=== PATIENT | male | born 1985 | race Caucasian/White ===

== ENCOUNTER 2024-02-02 09:29 | Outpatient (CLI) | payer BC, SELFPAY | END 2024-02-02 09:30 | disposition home or self-care (01) | PROVIDERS: PCP Family Medicine; Visit Provider Family Medicine | DX: Z13.220 Encounter for screening for lipoid disorders (principal); Z13.1 Encounter for screening for diabetes mellitus | CPT/HCPCS: 80061; 82947 ==

== ENCOUNTER 2024-08-02 12:43 | Emergency (ER) | payer BC, SELFPAY ==
[2024-08-02 12:47] VITALS: BP 155/84; PULSE 80; RESP 16; TEMP 36.7; O2SAT 99; BMI 32.1
--- NOTE | 2024-08-02 13:30 | ED_ITS ---
HPI - Neck Pain/Injury General Chief Complaint: Neck Injury/Pain Stated Complaint: Severe neck pain Time Seen by Provider: 08/02/24 12:47 History of Present Illness HPI Narrative: This 38-year-old male comes in with neck pain that began this morning upon awakening. He thinks that he probably slept wrong. His neck pain is worsened through the day and now he has torticollis and is holding his head off to the right. He has increased pain or has twinges of pain when he tries to straighten up. He does not report any injury event or strenuous activity. 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 He does not report any symptoms like this in the past. He is not reporting any radiating symptoms into either arm or hands. Related Data Previous Rx's ?Medication ?Instructions ?Recorded cetirizine 10 mg tablet 10 mg PO QDAY #90 tabs 03/02/24 fluticasone propionate 50 1 spray intranasal BID #16 grams 03/02/24 mcg/actuation nasal spray,suspension cyclobenzaprine 10 mg tablet 10 mg PO TID #15 tabs 08/02/24 ketorolac 10 mg tablet 10 mg PO Q8H 5 days #15 tabs 08/02/24 methylprednisolone 4 mg tablets in See Rx Instructions PO .COMPLEX 08/02/24 a dose pack (Medrol (Hector)) #21 ea Allergies Allergy/AdvReac Type Severity Reaction Status Date / Time No Known Drug Allergies Allergy Verified 02/17/24 10:59 Review of Systems Status of ROS: Reports: 10 or more systems reviewed and unremarkable except as noted in History and below Narrative: Constitutional: No fevers, no weight gain or loss. Eyes: No discharge. No vision changes. HENT: No congestion, no sore throat, no ear pain. Cardiovascular: No chest pain, no palpitations. Respiratory: No shortness of breath, no wheezes, no cough. Gastrointestinal: No abdominal pain, no vomiting, no diarrhea. Genitourinary: No dysuria, no hematuria. Musculoskeletal: Normal range of motion. Skin: No rashes, no pruritis. Neurological: No dizziness, weakness, sensory change, speech change. Endo/Heme/Allergies: No bruising or bleeding. No polydipsia. Pysch: no suicidality, no anxiety, no insomnia. All other systems reviewed and are negative. PFSH PFSH Surgical History History of tonsillectomy and adenoidectomy (1988) ?Z90.89 - Acquired absence of other organs (ICD-10) History of lipoma ?Z86.018 - Personal history of other benign neoplasm (ICD-10) Family History Father Testicular cancer Maternal Grandfather Colon cancer Social History What is your current living situation?: I presently have a place to live Problems where you live: no known problems In the past 12 months, utilities in danger of being shut off: no In past 12 months, lack of transportation kept you from medical appts, meetings, work, or getting things needed for daily living: no In the past 12 mos, have been you worried that your food would run out before you had money to buy more?: never true In the past 12 mos, the food you bought just didn't last and you didn't have money to buy more?: never true How often does anyone, including family, friends and others, physically hurt you : never How often does anyone, including family, friends and others, insult or talk down to you: never How often does anyone, including family, friends and others, threaten you with harm: never How often does anyone, including family, friends and others, scream or curse at you: never Little interest or pleasure in doing things: not at all Feeling down, depressed, or hopeless: several days Exam Narrative: Exam Narrative: Constitutional: Well-developed, well-nourished, no acute distress. HEENT: Normocephalic, atraumatic. Neck: The patient is holding his head tipped to the right. He has pain when attempting to straighten up or rotate his head. There is no midline tenderness when palpating along his neck and spine. No radiating pain. Heart: Intact distal pulses. Lungs: No chest discomfort. No wheezes, rhonchi, or rales. Abdomen: Nontender. Back: Normal range of motion. Extremities: Normal range of motion. No injury. Skin: Intact. No rash. Warm. No erythema or pallor. Neurologic: No altered sensation. No weakness. Alert and oriented. Psychiatric: No suicidality. No anxiety or depression. No insomnia. Nursing notes and vitals signs are reviewed. Const: Vital Signs, click to edit/add: Vital Signs - 24 hr 08/02/24 12:47 Temperature 98.1 F Pulse Rate [Pulse Oximeter] 80 Respiratory Rate 16 Blood Pressure [Ri ght Upper Arm] 155/84 H Pulse Oximetry 99 Oxygen Delivery Me thod Room Air Course Vital Signs Vital signs: Initial Vital Signs Temperature 98.1 F 08/02/24 12:47 Temperature Source Temporal Artery Scan 08/02/24 12:47 Pulse Rate 80 08/02/24 12:47 Respiratory Rate 16 08/02/24 12:47 Blood Pressure 155/84 H 08/02/24 12:47 Blood Pressure Mean 107 H 08/02/24 12:47 Blood Pressure Position Sitting 08/02/24 12:47 Pulse Oximetry 99 08/02/24 12:47 Oxygen Delivery Method Room Air 08/02/24 12:47 Vital Signs Temperature 98.1 F 08/02/24 12:47 Pulse Rate 80 08/02/24 12:47 Respiratory Rate 16 08/02/24 12:47 Blood Pressure 155/84 H 08/02/24 12:47 Pulse Oximetry 99 08/02/24 12:47 Oxygen Delivery Method Room Air 08/02/24 12:47 Temperature 98.1 F 08/02/24 12:47 Pulse Rate 80 08/02/24 12:47 Respiratory Rate 16 08/02/24 12:47 Blood Pressure 155/84 H 08/02/24 12:47 Pulse Oximetry 99 08/02/24 12:47 Oxygen Delivery Method Room Air 08/02/24 12:47 MDM - Neck Pain/Injury MDM Narrative Medical decision making narrative: This patient comes in with neck pain and neck spasms as described above. He did not have any significant mechanism of injury that mandates imaging. I did offer imaging none the less and yet he declined for now. Patient received prescriptions for Toradol, Flexeril, and Medrol Dosepak. I did advise him regarding simple maneuvers to help relax the spasm. I also advised him regarding signs or symptoms that would indicate a need for return re-evaluation. Discharge Plan Discharge Clinical Impression: Torticollis Patient Disposition: Home, Self-Care Additional Instructions: Take medications as needed and directed. Gentle range of motion stretching as tolerated. Increase activity as able. Return if worsening. Prescriptions: New cyclobenzaprine 10 mg tablet 10 mg PO TID Qty: 15 0RF ketorolac 10 mg tablet 10 mg PO Q8H 5 Days Qty: 15 0RF methylprednisolone [Medrol (Hector)] 4 mg tablets,dose pack See Rx Instructions .ROUTE .COMPLEX Qty: 21 0RF Rx Instructions: orally per package directions No Action cetirizine 10 mg tablet 10 mg PO QDAY Qty: 90 3RF fluticasone propionate 50 mcg/actuation spray,suspension 1 spray intranasal BID Qty: 16 12RF Rx Instructions: administer into each nostril Follow Up/Referrals: Tristin Jaramillo MD [Primary Care Provider] - Stand Alone Forms: [facility] Info Instructions
== END 2024-08-02 14:10 | disposition home or self-care (01) ==
LOC: ED 14:06
PROVIDERS: Emergency Provider Emergency Medicine Emergency Medical Services; PCP Family Medicine
DX: M43.6 Torticollis (principal)
CPT/HCPCS: 99283; 99284

== ENCOUNTER 2025-03-22 08:23 | Outpatient (CLI) | payer BC, SELFPAY | END 2025-03-22 08:24 | disposition home or self-care (01) | LOC: NFLDREF 03-29 03:24 | PROVIDERS: PCP Family Medicine; Referring Provider Family Medicine; Visit Provider Family Medicine | DX: Z00.01 Encounter for general adult medical examination with abnormal findings (principal); E78.5 Hyperlipidemia, unspecified; Z13.1 Encounter for screening for diabetes mellitus | CPT/HCPCS: 80061; 82947 ==

== ENCOUNTER 2025-04-19 15:35 | Outpatient (CLI) | payer BC, SELFPAY | END 2025-04-19 15:36 | disposition home or self-care (01) | PROVIDERS: PCP Family Medicine; Visit Provider Registered Nurse | DX: R10.9 Unspecified abdominal pain (principal) | CPT/HCPCS: 80053; 83690 ==

== ENCOUNTER 2025-05-08 14:38 | Outpatient (CLI) | payer BC, SELFPAY ==
--- NOTE | 2025-05-08 14:45 | CRLHL7_ITS ---
For Patients: As a result of the Century Cures Act, medical imaging exams and procedure reports are released immediately into your electronic medical record. You may view this report before your referring provider. If you have questions, please contact your health care provider. INDICATION: Scrotal pain COMPARISON: none TECHNIQUE: Jones scale imaging was performed of the scrotum. In addition color Doppler and spectral Doppler analysis was performed of the testes. FINDINGS: The testes demonstrate normal arterial and venous blood flow on color Doppler and spectral Doppler analysis. The testes have uniform echogenicity with no evidence of a suspicious mass or area of inflammation. A few incidental calcifications are noted within the right testicle. Incidental dilated rete testes on the right. The right testis measures 5.5 x 2.3 x 3.6 cm in size and the left testis measures 4.7 x 1.9 x 3.1 cm. The epididymis appears normal bilaterally. No hydrocele. Left varicocele. IMPRESSION: Left varicocele. No testicular mass or torsion. A few incidental microcalcifications are present within the right testicle. Normal epididymis bilaterally. No hydrocele. Dictated by Brenden Gallegos MD @ 05/09/2025 6:57:07 AM (Electronically Signed)
== END 2025-05-08 14:39 | disposition home or self-care (01) ==
PROVIDERS: PCP Family Medicine; Visit Provider Surgery
DX: N50.82 Scrotal pain (principal); I86.1 Scrotal varices
CPT/HCPCS: 76870; 93976